=== PATIENT | female | born 1990 | race Caucasian/White ===

== ENCOUNTER 2018-07-11 17:17 | Observation (INO) ==
[2018-07-11 18:33] LABS: Amphetamine Screen,Urine Negative ng/mL (Cutoff=1000); Barbiturate Screen,Urine Negative ng/mL (Cutoff=200); Benzodiazepines Screen,Urine Negative ng/mL (Cutoff=200); Cannabinoid Screen,Urine Negative ng/mL (Cutoff = 50); Cocaine Screen,Urine Negative ng/mL (Cutoff= 300); Opiate Screen,Urine Negative ng/mL (Cutoff=300); Phencyclidine Screen,Urine Negative ng/mL (Cutoff=25)
--- NOTE | 2018-07-11 19:16 | Discharge Summary ---
Date of Encounter: 07/11/18 Time of Encounter: 19:16 - Discharge Diagnosis (1) 37 weeks gestation of Priority: Primary Status: Acute Comments: Admitted to observation for complaint of uterine contractions x 2 hours. (2) NST (non-stress test) reactive Priority: Secondary Status: Acute Comments: FHR 135 bpm, moderate variability, +15x15 accels, no decels. (3) Uterine contractions during Priority: Secondary Status: Acute Comments: Irregular uterine contractions. No cervical change in 1 hr. Data Procedures and tests throughout hospitalization: Laboratory Tests 07/11/18 17:38 Urine Opiates Screen Negative Ur Barbiturates Screen Negative Ur Phencyclidine Scrn Negative Ur Amphetamines Screen Negative U Benzodiazepines Scrn Negative Urine Cocaine Screen Negative U Marijuana (THC) Screen Negative Ur Drug Screen Interp See Below Labs on day of discharge: Labs from last 24 hours 07/11/18 17:38 Urine Opiates Screen Negative Ur Barbiturates Screen Negative Ur Phencyclidine Scrn Negative Ur Amphetamines Screen Negative U Benzodiazepines Scrn Negative Urine Cocaine Screen Negative U Marijuana (THC) Screen Negative Ur Drug Screen Interp See Below Date of admission: 07/11/18 17:17 Discharging clinician: Petty Morejon Anticipated date of discharge: 07/11/18 - Patient Status Disposition: Home, Self-Care Condition: Good Functional capacity at discharge: independent ambulation Overall status at discharge: patient is back to baseline - Discharge Instructions Follow Up With: Lexi Rubio, [Partnered Physician] - - Diet and Activity Activity: resume usual activities as tolerated Diet: regular diet 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 States they have lessened in intensity on her way here. Reports positive movement, denies fluid leakage and bleeding. SVE 1/thick/high without change while here. Small amount of bloody show noted. Pt given labor precautions and notified of normal spotting with vaginal exams. Time Attestation: Total time spent providing and/or coordinating discharge services: Time Spent: Less than 30 minutes Exam - Constitutional General appearance IM: A&O X 3, no acute distress - Respiratory Respiratory exam: Present: CTAB - Cardiovascular Cardiovascular exam IM: Present: RRR, +S1, +S2 - GI/Abdominal GI/Abdominal exam IM: normal bowel sounds - Rectal Rectal exam: deferred - Neurological Exam Neurological exam: normal gait, oriented X3, reflexes normal - VTE Reasons for not Prescribing Prophylaxis: Treatment not Indicated - Low risk for VTE
[2018-07-11 19:21] LABS: Gardnerella DNA DETECTED (Not Detect); Trichomonas DNA Not Detected (Not Detect)
[2018-07-11 19:22] LABS: Candida DNA Not Detected (Not Detect)
== END 2018-07-11 19:25 | disposition home or self-care (01) ==
LOC: 1NENULAB
PROVIDERS: ADMIT Advanced Practice Midwife; ATTEND Advanced Practice Midwife

== ENCOUNTER 2018-07-29 06:00 | Inpatient (IN) ==
[2018-07-29] MEDS ORDERED: Ondansetron 4 MG/2 ML VIAL IVP PRN (06:13)
[2018-07-29] MEDS ORDERED: Naloxone 0.4 MG/ML INJ IVP PRN (06:13)
[2018-07-29] MEDS ORDERED: Famotidine 20 MG/2 ML VIAL IVP PRN (06:13)
[2018-07-29] MEDS ORDERED: Ringers Solution, Lactated 1,000 ML IVC SCH (06:15)
[2018-07-29] MEDS ORDERED: miSOPROStol 100 MCG TABLET PO STA (06:33)
[2018-07-29] MEDS ORDERED: Ringers Solution, Lactated 1,000 ML ONE (06:40)
--- NOTE | 2018-07-29 06:54 | Anesthesia Evaluation PreOp ---
Date of Encounter: 07/29/18 Time of Encounter: 06:52 - Past History Planned Operation: YONIS/ Cardiac History: Denies any Significant Hx Pulmonary History: Denies Any Significant HX PIANO MAKER History: Denies Any Significant HX Other Medical History: Denies Any Significant HX Anesthesia History: No Prior Anesthetic Complications, Past Anesthesia Alcohol Use: none Drug use: none Medications and Allergies metroNIDAZOLE [Metronidazole] 500 mg PO BID #14 tablet 07/11/18 [Rx] Allergy/AdvReac Type Severity Reaction Status Date / Time Cefaclor [From Ceclor] Allergy Vomiting Verified 07/23/18 11:56 - Meds/Allergy Pre-op Review Medications Reviewed: Yes Allergies Reviewed: Yes Beta Blockers on Current Med List: No Anesthesia Exam O2 Sat Height 1.65 m Weight 91.172 kg NPO (# of Hours): 8 Pain Scale: 2 Pain Scale Used: Numeric (1 - 10) - HEENT Pupil (Motor): Pupils equal Mallampati: II Teeth: Normal Oral Opening: Greater than 3 - PIANO MAKER LOC: Oriented PIANO MAKER Motor: Normal RUE, Normal LUE, Normal RLE, Normal LLE, Normal Face PIANO MAKER Sensory: Normal: RUE, LUE, RLE, LLE, Face - Cardiac Rhythm: Regular Murmur: None JVD: No Carotid Bruit: No - Pulmonary Breath Sounds: bilateral Clear Respiratory Effort: Symmetrical Anesthesia Assess/Plan ASA Score: 2 Modified [place] Scale for Level of Consciousness: Cooperative, oriented, and tranquil Anesthetic Plan: General (plan b), Regional (plan a) Autologous Blood: Yes Monitoring Plan: Standard Monitors Recovery Plan: PACU
--- NOTE | 2018-07-29 07:04 | OB Labor Progress Note ---
Date of Encounter: 07/29/18 Time of Encounter: 07:02 Labor Progress Note - Subjective Subjective: Pt here for induction and had vagal episode after IV was started. Pt had no other complaints. - Vital Signs Vital Signs: BP61/30 - Cervix Cervix: 3/70/-2 - Heart Tones Heart Tones: Had RNST then during vagal episode FHT's dropped to 50's. - Interventions Interventions: IV fluid, repositioning, oxygen, and ephedrine given. - Plan Plan: FHT's now 150's with improving variability. Anesthesia has seen pt. Will cont. close observation and start Cytotec as planned when situation improves.
[2018-07-29] MEDS ORDERED: EPHEDrine 50 MG/ML VIAL ONE (07:10)
--- NOTE | 2018-07-29 07:12 | OB/GYN History & Physical ---
Date of Encounter: 07/29/18 Time of Encounter: 07:11 Assessment and Plan (1) 40 weeks gestation of Current visit: Yes Status: Acute Admitted for induction of labor. Administer by mouth Cytotec. Patient may have epidural when she requests. Anticipate . (2) Group beta Strep positive Current visit: Yes Status: Acute Begin GBS prophylaxis (3) Anemia affecting in third trimester Current visit: Yes Status: Acute Monitor blood count as necessary. Continue iron supplement . (4) NST (non-stress test) reactive Current visit: No Status: Acute FHR 145 bpm, moderate variability, positive accelerations, no decelerations. History of Present Illness Chief complaint: Induction of labor HPI: Ms. Snyder is a 28 year old female primigravida who presents today for induction of labor at 40 weeks. Her course has been uncomplicated. She reports positive movement, denies vaginal bleeding and leakage of fluid. Blood type A positive GBS positive Rubella immune HBsAg nonreactive T Palladium negative Varicella immune Past Med Surg Social Fam HX - Past Medical History Source: patient Medical history: no medical history Psychiatric history: no psych history - Past Surgical History Surgical History: other Additional surgical history: reconstructive surgery on bilateral feet - Social History Smoking Status: Never smoker Smokeless Tobacco Status: No Alcohol use: none Drug use: none Current living situation: Home - Independent Activity Level: Independent ambulation Recent Out of Country Travel Within the Last 8 Weeks: No Exposure or Possible Exposure to Illness During Travel: No - Family History Mother Living Status: Still Living Hx Family Cardiac Disorders: Yes Hx Family Cancer: Yes (breast) Hx Family Endocrine Disorder: Yes (fibromyalgia) Hx Family Psychosocial Disorders: Yes (anxiety and depression) Obstetrical History - Pregnancies : 1 Para: 0 Term: 0 : 0 Ab's: 0 Livin Medications and Allergies metroNIDAZOLE [Metronidazole] 500 mg PO BID #14 tablet 07/11/18 [Rx] Allergy/AdvReac Type Severity Reaction Status Date / Time [facility] Allergy Vomiting Verified 07/23/18 11:56 Review of System OB - Constitutional Constitutional ROS IM: as per HPI, no headache(s) Exam - Constitutional Constitutional: well developed, well nourished, no acute distress, average body habitus - HEENT HEENT: PERRL, Mucus Membranes Moist - Neck Neck exam: full ROM, normal inspection - Lungs Respiratory exam: CTAB - Cardiovascular Cardiovascular exam: RRR, +S1, +S2 - Breasts Breast: bilateral: normal - Abdomen Abdomen: Present: bowel sounds normal, gravid, non tender - Extremities Extremities exam: full ROM, normal capillary refill, normal inspection Deep Tendon Reflex Grade: 2+ Normal - Cervix Dilation: 2 (per Dr. Ponce VANN) Effacement: 70 - Uterus Uterus exam: Present: normal size Results Result Diagrams: 07/29/18 06:40 All other labs normal. - VTE Reasons for not Prescribing Prophylaxis: Treatment not Indicated - Low risk for VTE
[2018-07-29] MEDS ORDERED: Penicillin G Potassium 5,000,000 UNIT in 0.9 % Sodium Chloride Mini Bag 100 ML IVPB ONE (07:13)
[2018-07-29 07:19] LABS: Amphetamine Screen,Urine Negative ng/mL (Cutoff=1000); Barbiturate Screen,Urine Negative ng/mL (Cutoff=200)
[2018-07-29 07:20] LABS: Benzodiazepines Screen,Urine Negative ng/mL (Cutoff=300); Cannabinoid Screen,Urine Negative ng/mL (Cutoff = 50); Cocaine Screen,Urine Negative ng/mL (Cutoff= 300); Opiate Screen,Urine Negative ng/mL (Cutoff=300); Phencyclidine Screen,Urine Negative ng/mL (Cutoff=25)
[2018-07-29 07:22] LABS: Basophils % 0.5 %; Eosinophils # 0.1 K/mcL (0.0-0.6); Eosinophils % 1.1 %; Hematocrit 31.3 % (35.3-44.9); Hemoglobin 9.9 g/dL (11.5-15.4); Immature Granulocytes % 0.4 % (0-4); Lymphocytes # 1.3 K/mcL (0.6-4.6); Lymphocytes % 16.6 %; Mean Corpuscular HGB Conc 31.6 g/dL (31.6-35.5); Mean Corpuscular Hemoglobin 25.4 pg (28.0-33.3); Mean Corpuscular Volume 80.3 fL (83.0-100.0); Mean Platelet Volume 12.6 fL (9.4-12.4); Monocytes # 0.6 K/mcL (0.0-1.3); Monocytes % 7.7 %; Neutrophils # 5.8 K/mcL (1.6-8.9); Platelet Count 246 K/mcL (140-400); Red Cell Distribution Width 15.8 % (11.5-14.5); Segmented Neutrophils % 73.7 %
[2018-07-29] MEDS ORDERED: EPHEDrine 50 MG/ML VIAL IVP PRN (07:38)
[2018-07-29] MEDS ORDERED: Epidural Premix (fent/bupiv) 110 ML EP SCH (07:45)
--- NOTE | 2018-07-29 08:42 | OB Labor Progress Note ---
Date of Encounter: 07/29/18 Time of Encounter: 08:00 Labor Progress Note - Subjective Subjective: The patient is comfortable, reports that she is starting to feel contractions. She was given Cytotec about 15 minutes prior - Vital Signs Vital Signs: Afebrile, vital signs stable - Heart Tones Heart Tones: 140s baseline, CAT 1 - [place]: Contractions are irregular - Interventions Interventions: 40 week IUP for induction of labor. Status post vagal situation with IV start. decelerations at that time have resolved. GBS is positive and patient has been started on penicillin without reaction - Plan Plan: The patient has anemia with a hemoglobin in the nines. She has no objections to blood transfusion if needed. She is aware this will be discussed with her further if it is recommended. Plan to continue induction of labor with anticipa tion of vaginal delivery
[2018-07-29] MEDS ORDERED: Oxytocin 20 units/ LR 1000 mL 20 UNIT/1,000 ML BAG IVC SCH (12:00)
[2018-07-29] MEDS: Penicillin G Potassium 2,500,000 UNIT in 0.9 % Sodium Chloride 100 ML IVPB SCH ×3 (12:00→20:17)
--- NOTE | 2018-07-29 13:14 | OB Labor Progress Note ---
Date of Encounter: 07/29/18 Time of Encounter: 13:10 Labor Progress Note - Subjective Subjective: The patient is comfortable with her contractions. She has been started on Pitocin after her 4 hours of Cytotec were. She did have a variable and she was repositioned in symptoms resolved. - Vital Signs Vital Signs: Afebrile, vital signs stable - Cervix Cervix: 2/70/-2, vertex - Heart Tones Heart Tones: 120s baseline, CAT 1 - [place]: Irregular on external toco - Interventions Interventions: 40 week IUP for induction of labor without cervical change on Cytotec - Plan Plan: 60 mL Reyes balloon placed in the cervix without difficulty. Continue induction of labor on low-dose Pitocin. After Reyes is removed, will proceed with amniotomy. Patient aware plan of care
[2018-07-29] MEDS ORDERED: Lidocaine -MPF 2% 5 ML VIAL ONE ×2 (14:39→21:28)
--- NOTE | 2018-07-29 15:53 | OB Labor Progress Note ---
Date of Encounter: 07/29/18 Time of Encounter: 15:50 Labor Progress Note - Subjective Subjective: Patient coping well with contractions. States she has a high pain tolerance and is unsure that she will need pain medication or epidural. - Vital Signs Vital Signs: Afebrile, vital signs within normal limits - Cervix Cervix: 6/80/-1 - Heart Tones Heart Tones: FHR 135 bpm, moderate variability, early decelerations, +15x15 accels prior to AROM - [place]etronia Cetronia: 2-3 minutes - Interventions Interventions: SVE AROM for moderate amount of clear fluid. IUPC inserted for accurate monitoring of contractions. - Plan Plan: Continue induction. IV Nubain if patient requests Epidural if and when patient desires Position change as patient tolerates. Continue GBS prophylaxis as scheduled Anticipate
--- NOTE | 2018-07-29 18:01 | OB Labor Progress Note ---
Date of Encounter: 07/29/18 Time of Encounter: 17:58 Labor Progress Note - Subjective Subjective: The patient has recently become much more uncomfortable with her contractions - Vital Signs Vital Signs: Afeb,VSS - Cervix Cervix: 6/90/-1 - Heart Tones Heart Tones: 125 baseline, CAT 1, occasional variable - [place]: Contractions every 2-3 minutes on 8 milliunits of Pitocin, 50 mmHg - Interventions Interventions: 40 week IUP for induction of labor. - Plan Plan: Patient currently on Pitocin for induction. She is requesting epidural. No cervical change in 2 hours despite adequate contraction pattern. Continue close observation.
--- NOTE | 2018-07-29 18:45 | Anesthesia Procedures ---
Addendum entered and electronically signed by Atul Lira CRNA 07/30/18 07:19: Delivery Date: 07/30/18 Infant Delivery Time: 00:05 Original Note: Date of Encounter: 07/29/18 Time of Encounter: 18:17 Procedures: Anesthesia - Epidural/Spinal Patient ID/Chart reviewed: Yes Patient examined: Yes OB Eval: Gestational age: term OB Eval: : 1 OB Eval: Contractions: Non-stressed pattern Consent Obtained: Yes Supplemental Oxygen: None/Room Air Site Prep: Aseptic Technique, Sterile prep and drape, 0.5% Chlorhexidine/Alcohol Patient position: upright Local Anesthetic: Lidocaine 1% Amount of Local Anesthetic used: 2 Touhy Needle Gauge: 18 Touhy Needle Depth (cm): 7 Catheter Depth at Skin (cm): 11 Test Dose (1.5% Lido + Epi): Volume given (mls): 3 Test Dose Result: Negative Loading Dose: Other: 10ml from solution Loading Dose Administered: Thru Catheter Infusion Med: 0.125% Bupivacaine w/ 2 mcg/ml Fentanyl Infusion Rate (mls/hr): [address]: Tegaderm, Tape Interspace Used: L3-L4 Loss of Resistance (ACOSTA): Yes (saline) Blood: No CSF: No Paresthesia: No Procedure: vss though out procedure, FHR per rn's
[2018-07-29] MEDS ORDERED: *HR* Ropivacaine/PF 0.5% 20 ML VIAL ONE (20:55)
--- NOTE | 2018-07-29 22:12 | Anesthesia Procedures ---
Date of Encounter: 07/29/18 Time of Encounter: 21:47 Procedures: Anesthesia - Epidural/Spinal Patient ID/Chart reviewed: Yes Patient examined: Yes OB Eval: Contractions: Non-stressed pattern Consent Obtained: Yes Supplemental Oxygen: None/Room Air Site Prep: Aseptic Technique, Sterile prep and drape, 0.5% Chlorhexidine/Alcohol Patient position: right lateral decubitus Local Anesthetic: Lidocaine 1% Amount of Local Anesthetic used: 2 Touhy Needle Gauge: 18 Touhy Needle Depth (cm): 7 Catheter Depth at Skin (cm): 11 Test Dose (1.5% Lido + Epi): Volume given (mls): 4 Test Dose Result: Negative Loading Dose Administered: Thru Catheter Infusion Med: 0.125% Bupivacaine w/ 2 mcg/ml Fentanyl Infusion Rate (mls/hr): [address]: Tegaderm, Tape Interspace Used: L2-L3 Loss of Resistance (ACOSTA): Yes (saline) Blood: No CSF: No Paresthesia: No Procedure: vss though out procedure, FHR via RN's redo epidural, 2 level above previous level in lateral position d/t inadequate pain relief in left side despite bolus and catheter withdrawal, patient understanding risks and potential for it not to work, wishes to cont. with lateral and placed as above. aseptic tech though out.
--- NOTE | 2018-07-30 00:49 | OB/GYN Procedure Note ---
Delivery - Delivery Date: 07/30/18 Provider: Stella De Jesus (Petty Morejon CNM) Intrapartum events: none Delivery induction: colon, misoprostol Delivery augmentation: rupture of membranes, pitocin Delivery monitor: external FHT, external uterine, internal uterine Anesthesia: epidural Quantitated Blood Loss: 50 - Infant (s) A Infant Delivery Date: 07/30/18 Delivery Time: 00:05 Presentation: vertex Position: MUSA Route of delivery: Gender: Male Viability: Viable Pounds: 8 Ounces: 1 Weight Gram: 3.67 kg at 1 minute: 8 at 5 mins: 9 Shoulder Dystocia: not encountered Specimens collected: cord blood Placenta: spontaneous Cord: nuchal cord, 3 umbilical vessels, nuchal reduced - Repair Episiotomy: none Laceration Description: Periurethral (Left), Perineal - 2nd Degree - Complications Delivery complications: none Delivery comments: The patient was complete and pushing with epidural anesthesia with a spontaneous vaginal delivery in the MUSA rotated to BRIDGER position of a vigorous male weighing 8 lbs. 1 oz. with Apgars of 8 at 1 minute and 9 at 5 minutes. was placed on the maternal abdomen and handed into the care of the nursery care team. The cord was clamped and cut after pulsations ceased. Cord blood obtained. The placenta was delivered spontaneous and intact. Left labial laceration was reapproximated with a 3-0 Monocryl in interrupted fashion. A small second-degree perineal laceration was repaired with 3-0 Monocryl in a [id number] fashion. Estimated blood loss 50 mL, complications none. I personally supervised and directed Renee Morejon CNM with this delivery and repair. - Disposition Mom disposition: stable in LDR [place] disposition: stable in LDR
[2018-07-30] MEDS ORDERED: Acetaminophen 325 MG TABLET PO PRN (01:19)
[2018-07-30] MEDS ORDERED: Oxytocin 20 units/ LR 1000 mL 20 UNIT/1,000 ML BAG IVC SCH (01:19)
[2018-07-30] MEDS ORDERED: Rho Immune Globulin 1,500 UNIT SYRINGE IM PRN (01:19)
[2018-07-30] MEDS ORDERED: *HR* HYDROcodone/Acet 5/325 mg TABLET PO SCH (06:00)
[2018-07-30 06:24] LABS: Basophils % 0.1 %; Hematocrit 28.3 % (35.3-44.9); Hemoglobin 9.1 g/dL (11.5-15.4); Immature Granulocytes % 0.5 % (0-4); Lymphocytes # 1.1 K/mcL (0.6-4.6); Lymphocytes % 7.2 %; Mean Corpuscular HGB Conc 32.2 g/dL (31.6-35.5); Mean Corpuscular Hemoglobin 25.6 pg (28.0-33.3); Mean Corpuscular Volume 79.5 fL (83.0-100.0); Mean Platelet Volume 12.2 fL (9.4-12.4); Monocytes # 1.1 K/mcL (0.0-1.3); Monocytes % 7.3 %; Neutrophils # 12.9 K/mcL (1.6-8.9); Platelet Count 217 K/mcL (140-400); Red Blood Count 3.56 M/mcL (3.82-4.97); Red Cell Distribution Width 15.9 % (11.5-14.5); Segmented Neutrophils % 84.9 %
--- NOTE | 2018-07-30 07:43 | Anesthesia Progress Note ---
Date of Encounter: 07/29/18 Time of Encounter: 06:50 Anesthesia Note - Note Note: 07/30/18 07:41 notified of patient's decreased blood pressure, and decreased fhr. called to room to assess patient. fluid bolus given and 10mg ephedrine administered IV with adequate and appropriate response. see nursing notes for complete vitals. pt vss and fhr stable. fluid bolus continued and total was 1L.
[2018-07-30] MEDS: Ibuprofen 600 MG TABLET PO PRN ×2 (10:07→21:56)
[2018-07-30] MEDS: Prenatal Vit/FA 1 EACH TABLET PO SCH (10:08)
[2018-07-31 08:33] VITALS: BP 102/58
[2018-07-31] MEDS: Prenatal Vit/FA 1 EACH TABLET PO SCH (09:39)
[2018-07-31] MEDS: Ibuprofen 600 MG TABLET PO PRN (09:39)
--- NOTE | 2018-07-31 10:09 | Discharge Summary ---
Date of Encounter: 07/31/18 Time of Encounter: 10:06 - Discharge Diagnosis (1) Status post vaginal delivery Priority: Primary Status: Acute Comments: Pt meeting PP milestones. Good mood. well and working with Rachel blakely. Pt states she has a breast pump at home. Discussed control and safe spacing, pt declines control at this time. Anticipate discharge today. - Discharge Medications Prescriptions: Ibuprofen [Motrin] 600 mg PO Q6HR PRN #30 tablet PRN Reason: Cramping Docusate [Colace] 100 mg PO BID #30 capsule Home Medications: Docusate [Colace] 100 mg PO BID #30 capsule 07/31/18 [Rx] Ibuprofen [Motrin] 600 mg PO Q6HR PRN #30 tablet 07/31/18 [Rx] Mupirocin [Bactroban Oint] 1 appl TP TID PRN tube 07/31/18 [Rx] Vit/FA 1 each PO DAILY tablet 07/31/18 [Rx] Allergies/Adverse Reactions: Allergy/AdvReac Type Severity Reaction Status Date / Time Cefaclor [From [facility]] Allergy Vomiting Verified 07/23/18 11:56 Data Procedures and tests throughout hospitalization: Laboratory Tests 07/29/18 07/29/18 07/30/18 06:40 06:40 06:10 WBC 7.9 15.2 H D RBC 3.90 3.56 L Hgb 9.9 L 9.1 L Hct 31.3 L 28.3 L MCV 80.3 L 79.5 L MCH 25.4 L 25.6 L MCHC 31.6 32.2 RDW 15.8 H 15.9 H Plt Count 246 217 MPV 12.6 H 12.2 Immature Gran % 0.4 0.5 Seg Neutrophils % 73.7 84.9 Lymphocytes % 16.6 7.2 Monocytes % 7.7 7.3 Eosinophils % 1.1 0.0 Basophils % 0.5 0.1 Neutrophils # 5.8 12.9 H Lymphocytes # 1.3 1.1 Monocytes # 0.6 1.1 Eosinophils # 0.1 0.0 Basophils # 0.0 0.0 Urine Opiates Screen Negative Ur Barbiturates Screen Negative Ur Phencyclidine Scrn Negative Ur Amphetamines Screen Negative U Benzodiazepines Scrn Negative Urine Cocaine Screen Negative U Marijuana (THC) Screen Negative Ur Drug Screen Interp See Below Date of admission: 07/29/18 06:11 Primary care physician: PCP NONE Consults: 07/30/18 01:19 Consult to Centrifugal Casting Machine Operator [CONS] Routine Comment: Vaginal delivery, consult needed Discharging clinician: Maritza Waldron Anticipated date of discharge: 07/31/18 - Patient Status Disposition: Home, Self-Care Condition: Good Functional capacity at discharge: independent ambulation Overall status at discharge: patient is progressing back to baseline - Discharge Instructions Follow Up With: NONE,PCP [Primary Care Provider] - Lexi Rubio DO [Partnered Physician] - - Diet and Activity Activity: increase activity as tolerated Diet: advance to your usual diet Hospital Course Reason for admission: induction of labor Delivery: Episiotomy: none Laceration: 2nd degree (Periurethral (Left), Perineal - 2nd Degree) Other procedures: none complications: none Discharge diagnosis: IUP at term delivered [place] baby: female Hospital course: Delivery - Delivery Date: 07/30/18 Provider: Stella De Jesus Rochelle CN) Intrapartum events: none Delivery induction: colon, misoprostol Delivery augmentation: rupture of membranes, pitocin Delivery monitor: external FHT, external uterine, internal uterine Anesthesia: epidural Quantitated Blood Loss: 50 - Infant (s) Infant A Infant Delivery Date: 07/30/18 Infant Delivery Time: 00:05 Presentation: vertex Position: MUSA Route of delivery: Gender: Male Viability: Viable Pounds: 8 Ounces: 1 Weight Gram: 3.67 kg at 1 minute: 8 at 5 mins: 9 Shoulder Dystocia: not encountered Specimens collected: cord blood Placenta: spontaneous Cord: nuchal cord, 3 umbilical vessels, nuchal reduced - Repair Episiotomy: none Laceration Description: Periurethral (Left), Perineal - 2nd Degree - Complications Delivery complications: none Delivery comments: The patient was complete and pushing with epidural anesthesia with a spontaneous vaginal delivery in the MUSA rotated to BRIDGER position of a vigorous male weighing 8 lbs. 1 oz. with Apgars of 8 at 1 minute and 9 at 5 minutes. Infant was placed on the maternal abdomen and handed into the care of the nursery care team. The cord was clamped and cut after pulsations ceased. Cord blood obtained. The placenta was delivered spontaneous and intact. Left labial laceration was reapproximated with a 3-0 Monocryl in interrupted fashion. A small second-degree perineal laceration was repaired with 3-0 Monocryl in a [id number] fashion. Estimated blood loss 50 mL, complications none. I personally supervised and directed Renee Morejon CNM with this delivery and repair. - Disposition Mom disposition: stable in LDR [place] disposition: stable in LDR Time Attestation: Total time spent providing and/or coordinating discharge services: Exam - Constitutional Vitals: Temp Pulse Resp BP Pulse Ox 98.0 F 94 16 102/58 98 07/31/18 08:32 07/31/18 08:32 07/31/18 08:32 07/31/18 08:32 07/30/18 19:45 General appearance IM: A&O X 3, pleasant, no acute distress - Respiratory Respiratory exam: Present: CTAB - Cardiovascular Cardiovascular exam IM: Present: RRR, +S1, +S2 - GI/Abdominal GI/Abdominal exam IM: normal bowel sounds - Uterine Tone: Firm Uterus Position: At Umbilicus - Extremities Exam Extremities exam IM: Present: normal inspection, pedal edema (1+). Absent: calf tenderness - Neurological Exam Neurological exam: oriented X3
[2018-07-31] MEDS ORDERED: Benzocaine/Menthol 56 GM AEROSOL SPRAY TP PRN (10:20)
== END 2018-07-31 11:37 | disposition home or self-care (01) | DRG 807 ==
LOC: 1NENULAB 06:11 → 1NENUOBS 07-30 03:04
PROVIDERS: ADMIT Obstetrics & Gynecology; ATTEND Obstetrics & Gynecology

== ENCOUNTER 2020-10-11 07:59 | Inpatient (IN) ==
[2020-10-11] MEDS ORDERED: Naloxone 0.4 MG/ML INJ IVP PRN (08:18)
[2020-10-11] MEDS ORDERED: Famotidine 20 MG/2 ML VIAL IVP PRN (08:18)
[2020-10-11] MEDS ORDERED: Metoclopramide 10 MG/2 ML VIAL IVP PRN (08:18)
[2020-10-11] MEDS ORDERED: Ringers Solution, Lactated 1,000 ML ONE ×2 (09:21→13:54)
[2020-10-11] MEDS ORDERED: Penicillin G Potassium 5,000,000 UNIT in 0.9 % Sodium Chloride Mini Bag 100 ML IVPB ONE (09:41)
[2020-10-11] MEDS ORDERED: miSOPROStoL 25 MCG TABLET PO PRN (09:41)
[2020-10-11 09:42] LABS: Basophils % 0.5 %; Eosinophils # 0.1 K/mcL (0.0-0.6); Eosinophils % 1.6 %; Hematocrit 22.9 % (35.3-44.9); Hemoglobin 6.9 g/dL (11.5-15.4); Immature Granulocytes % 1.3 % (0-4); Lymphocytes # 1.1 K/mcL (0.6-4.6); Lymphocytes % 14.3 %; Mean Corpuscular HGB Conc 30.1 g/dL (31.6-35.5); Mean Corpuscular Volume 76.3 fL (83.0-100.0); Mean Platelet Volume 11.9 fL (9.4-12.4); Monocytes # 0.7 K/mcL (0.0-1.3); Monocytes % 8.3 %; Neutrophils # 5.9 K/mcL (1.6-8.9); Nucleated Red Blood Cells 0.3 /100 WBC (0); Platelet Count 243 K/mcL (140-400); Red Cell Distribution Width 15.1 % (11.5-14.5)
[2020-10-11 09:49] LABS: Amphetamine Screen,Urine Negative ng/mL (Cutoff=1000); Barbiturate Screen,Urine Negative ng/mL (Cutoff=200); Benzodiazepines Screen,Urine Negative ng/mL (Cutoff=200); Cannabinoid Screen,Urine Negative ng/mL (Cutoff = 50); Cocaine Screen,Urine Negative ng/mL (Cutoff= 300); Opiate Screen,Urine Negative ng/mL (Cutoff=300); Phencyclidine Screen,Urine Negative ng/mL (Cutoff=25)
[2020-10-11] MEDS ORDERED: 0.9 % Sodium Chloride 250 ML ONE (10:36)
[2020-10-11] MEDS ORDERED: *HR* FentaNYL (PF) 100 MCG/2 ML VIAL EP ONE (13:47)
[2020-10-11] MEDS ORDERED: Ropivacaine/PF 0.2% 20 ML VIAL EP ONE (13:47)
[2020-10-11] MEDS ORDERED: EPHEDrine 50 MG/ML VIAL IVP PRN (13:47)
[2020-10-11] MEDS ORDERED: *HR* FentaNYL (PF) 100 MCG/2 ML VIAL ONE (13:51)
[2020-10-11] MEDS ORDERED: Ropivacaine/PF 0.2% 20 ML VIAL ONE (13:51)
[2020-10-11] MEDS ORDERED: Penicillin G Potassium 2,500,000 UNIT in 0.9 % Sodium Chloride 100 ML IVPB SCH (14:00)
[2020-10-11] MEDS ORDERED: Epidural Premix (fent/bupiv) 110 ML EP SCH (14:00)
[2020-10-11] MEDS ORDERED: Oxytocin 20 units/ LR 1000 mL 20 UNIT/1,000 ML BAG IVC ONE (14:28)
[2020-10-11] MEDS ORDERED: Lidocaine 1% 20 ML MDV ONE (15:33)
[2020-10-11] MEDS ORDERED: Acetaminophen 325 MG TABLET PO PRN (18:07)
[2020-10-11] MEDS ORDERED: Benzocaine/Menthol 56 GM AEROSOL SPRAY TP PRN (18:07)
[2020-10-11] MEDS ORDERED: Oxytocin 20 units/ LR 1000 mL 20 UNIT/1,000 ML BAG IVC SCH (18:07)
[2020-10-11] MEDS ORDERED: Ibuprofen 600 MG TABLET PO PRN (18:07)
[2020-10-12 05:08] LABS: Basophils % 0.3 %; Eosinophils # 0.1 K/mcL (0.0-0.6); Hematocrit 21.9 % (35.3-44.9); Hemoglobin 6.9 g/dL (11.5-15.4); Immature Granulocytes % 0.6 % (0-4); Lymphocytes # 1.8 K/mcL (0.6-4.6); Lymphocytes % 15.9 %; Mean Corpuscular HGB Conc 31.5 g/dL (31.6-35.5); Mean Corpuscular Hemoglobin 24.1 pg (28.0-33.3); Mean Corpuscular Volume 76.6 fL (83.0-100.0); Mean Platelet Volume 12.4 fL (9.4-12.4); Monocytes # 0.9 K/mcL (0.0-1.3); Monocytes % 7.7 %; Neutrophils # 8.3 K/mcL (1.6-8.9); Nucleated Red Blood Cells 0.3 /100 WBC (0); Platelet Count 201 K/mcL (140-400); Red Blood Count 2.86 M/mcL (3.82-4.97); Red Cell Distribution Width 15.2 % (11.5-14.5); Segmented Neutrophils % 74.5 %; White Blood Count 11.2 K/mcL (4.3-11.1)
[2020-10-12] MEDS ORDERED: 0.9 % Sodium Chloride 250 ML ONE (08:40)
[2020-10-12] MEDS ORDERED: Prenatal Vit/FA 1 EACH TABLET PO SCH (09:00)
[2020-10-12] MEDS ORDERED: 0.9 % Sodium Chloride 500 ML ONE (10:46)
[2020-10-12 15:05] VITALS: BP 132/93
== END 2020-10-12 16:40 | disposition home or self-care (01) | DRG 768 ==
LOC: 1NENULAB 07:59 → 1NENUOBS 17:51
PROVIDERS: ADMIT Obstetrics & Gynecology; ATTEND Obstetrics & Gynecology